=== PATIENT | female | born 1965 | race Caucasian/White ===

== ENCOUNTER 2018-03-31 14:10 | Emergency (ER) | payer OTHER ==
[2018-03-31] MEDS ORDERED: hydrOXYzine 25 MG TAB ONE (14:19)
[2018-03-31] MEDS ORDERED: methylPREDNISolone Sod Succ/PF 125 MG/2 ML VIAL ONE (14:19)
[2018-03-31] MEDS ORDERED: Famotidine 20 MG TAB ONE (14:19)
== END 2018-03-31 15:10 | disposition home or self-care (01) ==
LOC: BURERS 14:10
DX: T78.40XA Allergy, unspecified, initial encounter (principal); S50.812A Abrasion of left forearm, initial encounter; S50.811A Abrasion of right forearm, initial encounter; I10 Essential (primary) hypertension; Z79.899 Other long term (current) drug therapy
CPT/HCPCS: 96372; J2930